=== PATIENT | male | born 1990 | race Caucasian/White ===

== ENCOUNTER 2016-09-07 22:45 | Emergency (ER) | payer SELFPAY ==
[~2016-09-07] VITALS: Ht 167.6 cm; Wt 65.0 kg
[2016-09-07] MEDS ORDERED: SODIUM CHLOR 0.9% 1000 ML INJ 1,000 ML IV SCH (22:49)
[2016-09-07 22:50] VITALS: BP 145/87; PULSE 110; RESP 18; TEMP 97.4; O2SAT 94
[2016-09-07] MEDS ORDERED: SODIUM CHLORIDE 0.9% FLUSH 5 ML FLUSH IV FLUSH PRN (23:00)
[2016-09-07 23:36] LABS: AUTOMATED NEUTROPHIL # 11.1 TH/MM3 (1.8-7.7); BASOPHIL % 0.3 % (0.0-2.0); EOSINOPHIL # 0.1 TH/MM3 (0-0.4); EOSINOPHIL % 0.6 % (0.0-4.0); HEMATOCRIT 45.1 % (39.0-51.0); HEMO FLAGS DIFF FINAL; LYMPH % 10.3 % (9.0-44.0); LYMPHOCYTE # 1.4 TH/MM3 (1.0-4.8); MEAN CELL VOLUME 93.7 FL (80.0-100.0); MEAN CORPUSCULAR HEMOGLOBIN 30.9 PG (27.0-34.0); MEAN CORPUSCULAR HGB CONC 32.9 % (32.0-36.0); MONO % 5.7 % (0.0-8.0); NEUT % 83.1 % (16.0-70.0); PLATELET COUNT 243 TH/MM3 (150-450); RED BLOOD COUNT 4.81 MIL/MM3 (4.50-5.90); RED CELL DISTRIBUTION WIDTH 13.7 % (11.6-17.2); WHITE BLOOD COUNT 13.4 TH/MM3 (4.0-11.0)
[2016-09-07 23:40] VITALS: BP 127/74; PULSE 84; RESP 18; O2SAT 98
--- NOTE | 2016-09-07 23:40 | RADRPT ---
EXAM DATE/TIME: 09/07/2016 23:19 [place] COMPARISON: No previous studies available for comparison. INDICATIONS : Syncopal episode. MEDICAL HISTORY : None. SURGICAL HISTORY : None. ENCOUNTER: Initial ACUITY: 1 day PAIN SCORE: 0/10 LOCATION: chest FINDINGS: A single view of the chest demonstrates the lungs to be symmetrically aerated without evidence of mas s, infiltrate or effusion. The cardiomediastinal contours are unremarkable. Osseous structures are intact. CONCLUSION: Normal examination. Fortunato Araujo MD on September 07, 2016 at 23:39 Board Certified Radiologist. This report was verified electronically.
[2016-09-08 00:03] LABS: ANION GAP 14 MEQ/L (5-15); AST (GOT) 26 U/L (15-37); BICARBONATE 23.8 MEQ/L (21.0-32.0); BLOOD UREA NITROGEN 11 MG/DL (7-18); CHLORIDE 103 MEQ/L (98-107); GLOMERULAR FILTRATION RATE 84 ML/MIN (>89); POTASSIUM 3.9 MEQ/L (3.5-5.1); SODIUM (NA) 141 MEQ/L (136-145)
[2016-09-08 00:06] LABS: ALKALINE PHOSPHATASE 80 U/L (45-117); ALT (GPT) 23 U/L (12-78); CREATINE KINASE 131 U/L (39-308); TOTAL BILIRUBIN ADULT 0.2 MG/DL (0.2-1.0)
[2016-09-08 00:22] VITALS: BP 122/76; PULSE 70; RESP 18; O2SAT 98
[2016-09-08 01:30] VITALS: BP 122/70; PULSE 86; RESP 18; O2SAT 98
--- NOTE | 2016-09-08 01:35 | PD ---
HPI Chief Complaint: OD/ Ingestion Time Seen by Provider: 22:49 Travel History International Travel<30 days: No Contact w/Intl Traveler<30days: No Traveled to known affect area: No History of Present Illness HPI 26-year-old male was brought into the emergency room by EMS after being found unresponsive along with his girlfriend after doing some drugs. Patient required total of 3 mg of Narcan prior to coming in after which he slowly woke up. Currently he is awake and answering questions appropriately although with some slurred speech. He said he found a packet laying on the ground and he picked it up which contained some powder. He snorted it. As per him he is never done drugs in the past. Soon after that him and his girlfriend both became unresponsive. He claims to be otherwise healthy. [facility] Past Medical History Narrative Medical Patient denies any significant past medical history. He is a smoker. Medical History: Denies Significant Hx Diminished Hearing: No Tetanus Vaccination: Unknown Past Surgical History Appendectomy: Yes Social History Alcohol Use: Yes (socially) Tobacco Use: Yes Substance Use: Yes ("[place] " tonight for the first time pt states) Allergies-Medications (Allergen,Severity, Reaction): Coded Allergies: No Known Allergies (Unverified , 09/07/16) Comments No known drug allergies. Reported Meds & Prescriptions Reported Meds & Active Scripts Active Accu-Chek Magaly Connect W/Device (Device) 1 Kit Kit 1 Kit .ROUTE DIRECTED Metformin (Metformin HCl) 500 Mg Tab 500 Mg PO BIDPC With meals Narrative Medication List of his home medications reviewed from the nursing note. Review of Systems Except as stated in HPI: all other systems reviewed are Neg Physical Exam Narrative GENERAL: Awake, alert, moderate distress SKIN: Focused skin assessment warm/dry. Multiple facial piercing HEAD: Atraumatic. Normocephalic. EYES: Pupils equal and round. No scleral icterus. No injection or drainage. ENT: No nasal bleeding or discharge. Mucous membranes pink and moist. NECK: Trachea midline. No JVD. CARDIOVASCULAR: Regular rate and rhythm. No murmur appreciated. RESPIRATORY: No accessory muscle use. Clear to auscultation. Breath sounds equal bilaterally. GASTROINTESTINAL: Abdomen soft, non-tender, nondistended. Hepatic and splenic margins not palpable. MUSCULOSKELETAL: No obvious deformities. No clubbing. No cyanosis. No edema. NEUROLOGICAL: Awake and alert. No obvious cranial nerve deficits. Motor grossly within normal limits. Slurred speech. PSYCHIATRIC: Appropriate mood and affect; insight and judgment normal. Data Data Last Documented VS Vital Signs Date Time Temp Pulse Resp B/P Pulse Ox O2 Delivery O2 Flow Rate FiO2 09/08/16 03:03 107 18 113/67 97 Room Air 09/07/16 22:50 97.4 Orders Complete Blood Count With Diff (09/07/16 22:49) Comprehensive Metabolic Panel (09/07/16 22:49) Creatine Kinase (Cpk) (09/07/16 22:49) Urinalysis - C+S If Indicated (09/07/16 22:49) Chest, Single Ap (09/07/16 22:49) Blood Glucose (09/07/16 22:49) Ecg Monitoring (09/07/16 22:49) Iv Access Insert/Monitor (09/07/16 22:49) Oximetry (09/07/16 22:49) Sodium Chloride 0.9% Flush (Ns Flush) (09/07/16 23:00) Sodium Chlor 0.9% 1000 Ml Inj (Ns 1000 M (09/07/16 22:49) Drug Screen, Random Urine (09/07/16 22:49) Metformin (Glucophage) (09/08/16 02:30) Blood Glucose (09/08/16 02:24) Electrocardiogram (09/07/16 22:53) Labs Laboratory Tests Test 09/07/16 09/08/16 23:05 01:40 White Blood Count 13.4 TH/MM3 Red Blood Count 4.81 MIL/MM3 Hemoglobin 14.9 GM/DL Hematocrit 45.1 % Mean Corpuscular Volume 93.7 FL Mean Corpuscular Hemoglobin 30.9 PG Mean Corpuscular Hemoglobin 32.9 % Concent Red Cell Distribution Width 13.7 % Platelet Count 243 TH/MM3 Mean Platelet Volume 7.4 FL Neutrophils (%) (Auto) 83.1 % Lymphocytes (%) (Auto) 10.3 % Monocytes (%) (Auto) 5.7 % Eosinophils (%) (Auto) 0.6 % Basophils (%) (Auto) 0.3 % Neutrophils # (Auto) 11.1 TH/MM3 Lymphocytes # (Auto) 1.4 TH/MM3 Monocytes # (Auto) 0.8 TH/MM3 Eosinophils # (Auto) 0.1 TH/MM3 Basophils # (Auto) 0.0 TH/MM3 CBC Comment DIFF FINAL Differential Comment Sodium Level 141 MEQ/L Potassium Level 3.9 MEQ/L Chloride Level 103 MEQ/L Carbon Dioxide Level 23.8 MEQ/L Anion Gap 14 MEQ/L Blood Urea Nitrogen 11 MG/DL Creatinine 1.06 MG/DL Estimat Glomerular Filtration 84 ML/MIN Rate Random Glucose 288 MG/DL Calcium Level 7.7 MG/DL Total Bilirubin 0.2 MG/DL Aspartate Amino Transf 26 U/L (AST/SGOT) Alanine Aminotransferase 23 U/L (ALT/SGPT) Alkaline Phosphatase 80 U/L Total Creatine Kinase 131 U/L Total Protein 7.0 GM/DL Albumin 3.9 GM/DL Urine Color YELLOW Urine Turbidity CLEAR Urine pH 6.0 Urine Specific [place] 1.010 Urine Protein NEG mg/dL Urine Glucose (UA) 1000 mg/dL Urine Ketones NEG mg/dL Urine Occult Blood NEG Urine Nitrite NEG Urine Bilirubin NEG Urine Urobilinogen LESS THAN 2.0 MG/DL Urine Leukocyte Esterase NEG Urine RBC LESS THAN 1 /hpf Urine WBC 2 /hpf Urine Hyaline Casts 8 /lpf Urine Mucus FEW /lpf Microscopic Urinalysis Comment CATH-CULT NOT IND Urine Opiates Screen NEG Urine Barbiturates Screen NEG Urine Amphetamines Screen NEG Urine Benzodiazepines Screen NEG Urine Cocaine Screen NEG Urine Cannabinoids Screen NEG MDM Medical Decision Making Medical Screen Exam Complete: Yes Emergency Medical Condition: Yes Medical Record Reviewed: Yes Interpretation(s) Twelve-lead EKG was reviewed by me. Normal sinus rhythm, normal axis, tachycardia, nonspecific ST-T wave changes. Heart rate of 110 bpm. Differential Diagnosis Opiate overdose, substance abuse, metabolic encephalopathy Narrative Course 1:33 AM given patient's own admission this seems to be an opiate overdose case. Especially with the fact that he reversed with Narcan. Blood test results of back and they're within normal limit. Chest x-rays within normal limit. Patient has not given a urine sample to check for urine drug screen. I would like to observe him for total of 4 hours post Narcan. Patient says that he wants to wait till his girlfriend is released. He has refused to get a CAT scan of his head at this point. I will cancel it. Blood test is also suggestive of hyperglycemia. 2:21 AM UA has more than thousand glucose. Patient probably is a diabetic. I will start him on metformin. Critical Care Narrative Aggregate critical care time was 30 minutes. Time to perform other separately billable procedures was not included in the critical care time. My time did not include minutes spent treating any other patients simultaneously or on activities that did not directly contribute to the patient's treatment. The services I provided to this patient were to treat and/or prevent clinically significant deterioration that could result in: Altered mental status, opiate overdose, cardiac monitoring and observation post reversal with Narcan I provided critical care services requiring my management, as noted below: Chart data review, documentation time, medication orders and management, vital sign assessments/reviewing monitor data, ordering and reviewing lab tests, ordering and interpreting/reviewing x-rays and diagnostic studies, care of the patient and discussion of the patient with the admitting physicians. Procedures EKG Prior to Arrival: No Diagnosis Primary Impression: Opiate overdose Qualified Code: T40.601A - Opiate overdose, accidental or unintentional, initial encounter Additional Impressions: Altered mental status Qualified Code: R40.2431 - [place] coma scale total score 3-8, in the field ( EMT or ambulance) Hyperglycemia Referrals: Primary Care Physician 2 days Additional Instructions: Please return to the ER if the condition worsens or any other new concerns. You probably diabetic since her blood sugar and urine was high in glucose. Start himself on the medications as been prescribed to you. However he would need to be careful checking her blood sugar as well. There is a risk of dropping a blood sugar significantly if you do not eat regularly while being on this medication. Follow-up with your primary care. If you do not have a primary care please find one for yourselves. Doing drugs is extremely harmful for your health as well as diabetes. Med/Other Pt SpecificInfo: Prescription(s) given Scripts Accu-Chek Magaly Plus Kit (Accu-Chek Magaly Connect W/Device)1 Kit Kit #1 KIT .ROUTE DIRECTED Ref 0 Prov:Ashley Trent MD 09/08/16 Metformin 500 Mg Vtd483 Mg PO BIDPC #60 TAB Ref 0 With meals Prov:Ashley Trent MD 09/08/16 Disposition: 01 DISCHARGE HOME Condition: Stable Ashley Trent MD September 08, 2016 01:35
[2016-09-08 02:01] LABS: BLOOD, URINE NEG (NEG); COMMENT (UR) CATH-CULT NOT IND; CULTURE IF INDICATED CATH CULTURE NOT IND; GLUCOSE,URINE 1000 mg/dL (NEG); HYALINE CAST, URINE 8 /lpf (RARE); KETONE, URINE NEG (NEG); MUCUS URINE FEW /lpf (OCC); NITRITE,URINE NEG (NEG); URINE COLOR YELLOW (YELLW/STRAW)
[2016-09-08 02:03] LABS: AMPHETAMINE, URINE NEG (NEG); BARBITURATES, URINE NEG (NEG); COCAINE, URINE NEG (NEG)
[2016-09-08] MEDS ORDERED: BLOO1KIT65 (02:24)
[2016-09-08] MEDS ORDERED: METF500T PO (02:24)
[2016-09-08] MEDS ORDERED: metFORMIN HCL 500 MG TAB PO ONE (02:30)
[2016-09-08 03:03] VITALS: BP 113/67; PULSE 107; RESP 18; O2SAT 97
--- NOTE | 2016-09-08 16:37 | EKG ---
Date Performed: 09/07/2016 Time Performed: 22:53:09 PTAGE: 26 years EKG: SINUS TACHYCARDIA ABNORMAL RHYTHM ECG NO PREVIOUS TRACING DOCTOR: Helio López Interpretating Date/Time 09/08/2016 16:36:54
== END 2016-09-08 04:31 | disposition home or self-care (01) ==
LOC: NEPC 22:45
DX: T40.601A Poisoning by unspecified narcotics, accidental (unintentional), initial encounter (principal); R41.82 Altered mental status, unspecified; R73.9 Hyperglycemia, unspecified; R94.31 Abnormal electrocardiogram [ECG] [EKG]; R47.81 Slurred speech; Z72.0 Tobacco use
CPT/HCPCS: 71010; 80053; 80307; 81001; 82550; 85025; 93005; 96360; 99285; J7030